=== PATIENT | female | born 1955 | race Two or more races ===

== ENCOUNTER 2017-11-08 22:54 | Emergency (ER) ==
[~2017-11-08] VITALS: Ht 157.5 cm; Wt 105.0 kg
[2017-11-09 00:05] LABS: BASOPHIL (%) 0.3 % (0-1); EOSINOPHIL COUNT 0.1 K/uL (0-0.3); HEMATOCRIT 37.9 % (36.0-46.0); HEMOGLOBIN 12.4 G/DL (11.9-15.5); IMMATURE GRANULOCYTE (%) 0.2 % (0.0-0.7); LYMPHOCYTE (%) 38.6 % (15-42); LYMPHOCYTE COUNT 2.3 K/uL (1.0-2.8); MCH 27.7 PG (29.0-34.0); MCHC 32.7 G/DL (30.0-36.0); MCV 84.8 FL (83-99); MONOCYTE (%) 7.4 % (3-12); MONOCYTE COUNT 0.4 K/uL (0-0.8); NEUTROPHIL (%) 51.5 % (45-76); NEUTROPHIL COUNT 3.1 K/uL (1.8-6.4); PLATELET COUNT 270 K/uL (156-360); RBC DIS.WIDTH-CV 15.3 % (11.8-14.6); RBC DIS.WIDTH-SD 47.3 % (39-53); RED BLOOD COUNT 4.47 M/uL (3.80-5.20); WHITE BLOOD COUNT 5.9 K/uL (4.1-10.2)
[2017-11-09 00:15] LABS: CHLORIDE 107 mEq/L (99-109); POTASSIUM 3.8 mEq/L (3.7-5.4); SODIUM 142 mEq/L (136-147)
[2017-11-09 00:17] LABS: GLUCOSE 95 mg/dL (70-99)
[2017-11-09 00:18] LABS: TOTAL PROTEIN 8.4 g/dL (6.4-8.3)
[2017-11-09 00:19] LABS: TOTAL BILIRUBIN 0.5 mg/dL (0.0-1.0)
[2017-11-09 00:21] LABS: ALKALINE PHOSPHATASE 101 IU/L (3-129); CREATININE 0.8 mg/dL (0.6-1.3)
[2017-11-09 00:22] LABS: UREA NITROGEN (BUN) 16 mg/dL (9-23)
[2017-11-09 00:23] LABS: AST (GOT) 12 IU/L (2-34); DIRECT BILIRUBIN 0.2 mg/dL (0.0-0.3)
[2017-11-09 00:24] LABS: ALT (GPT) 11 IU/L (3-49)
[2017-11-09 00:26] LABS: GFR ESTIMATE (CALCULATED) > 59 mL/min/
[2017-11-09 10:14] LABS: HEPATITIS B SURFACE ANTIGEN Nonreactive; HEPATITIS C ANTIBODY Nonreactive
[2017-11-09 10:15] LABS: HIV-1/2 AB/AG COMBO Nonreactive
[2017-11-09 11:19] LABS: HEPATITIS B SURFACE ANTIBODY REACTIVE
== END 2017-11-09 00:12 | disposition home or self-care (01) ==
LOC: EME 22:54
PROVIDERS: Physician Assistant
PROC: 3E0234Z Introduction of Serum, Toxoid and Vaccine into Muscle, Percutaneous Approach (ICD-10-PCS; principal; 2017-11-08)
DX: Z57.8 Occupational exposure to other risk factors (principal); Z77.21 Contact with and (suspected) exposure to potentially hazardous body fluids; I10 Essential (primary) hypertension; K50.90 Crohn's disease, unspecified, without complications; J45.909 Unspecified asthma, uncomplicated
CPT/HCPCS: 80048; 80076; 85025; 86706; 86803; 87340; 87389; 99281; 99284